=== PATIENT | male | born 1960 | race Caucasian/White ===

== ENCOUNTER 2020-04-11 21:29 | Inpatient (IN) | payer BC, SELFPAY ==
[~2020-04-11] VITALS: Ht 170.2 cm; Wt 88.0 kg
[2020-04-11 21:50] VITALS: Ht 170.2 cm; Wt 88.0 kg
[2020-04-11 23:43] LABS: BASOPHIL % 0.4 % (0.2-1.5); RED CELL DISTRIBUTION WIDTH 13.8 % (12.1-16.2)
[2020-04-11 23:46] LABS: PLATELET COUNT 103 x10^3mcL (152-348)
[2020-04-11 23:49] LABS: CARBON DIOXIDE 24.1 mmol/L (21-32); CHLORIDE SERUM 100 mmol/L (98-107); CREATININE SERUM 1.1 mg/dL (0.7-1.3); GFR1 > 60 mL/min; GLUCOSE SERUM 170 mg/dL (74-106); POTASSIUM SERUM 3.3 mmol/L (3.5-5.1); SODIUM SERUM 133 mmol/L (136-145)
[2020-04-11 23:56] LABS: ALKALINE PHOSPHATASE 98 U/L (46-116); ALT/SGPT 51 U/L (16-63); AST/SGOT 54 U/L (15-37); BILIRUBIN TOTAL 0.64 mg/dL (0.20-1.00)
[2020-04-11 23:57] LABS: LACTIC DEHYDROGENASE (LDH) 993 U/L (100-190)
[2020-04-12] MEDS ORDERED: POTASSIUM99 M1 PO (01:42)
[2020-04-12] MEDS ORDERED: KEFLEX500 M1 PO (01:43)
[2020-04-12] MEDS ORDERED: AMLODIPINE BESY1 TA1 PO (01:44)
[2020-04-12 02:58] VITALS: BP 128/75
[2020-04-12 10:36] LABS: BASOPHIL % 0.2 % (0.2-1.5); PLATELET COUNT 169 x10^3mcL (152-348); RED CELL DISTRIBUTION WIDTH 14.1 % (12.1-16.2)
[2020-04-12 10:50] LABS: CALCIUM 7.9 mg/dL (8.5-10.1); CARBON DIOXIDE 26.8 mmol/L (21-32); CHLORIDE SERUM 104 mmol/L (98-107); CREATININE SERUM 1.2 mg/dL (0.7-1.3); GFR1 > 60 mL/min; GLUCOSE SERUM 177 mg/dL (74-106); MAGNESIUM 2.5 mg/dL (1.8-2.4); PHOSPHOROUS 3.5 mg/dL (2.5-4.9); POTASSIUM SERUM 4.2 mmol/L (3.5-5.1); SODIUM SERUM 138 mmol/L (136-145)
[2020-04-12 11:33] LABS: C REACTIVE PROTEIN 23.5 mg/dL (<=0.9)
[2020-04-12 18:20] VITALS: BP 138/75
[2020-04-12 20:12] VITALS: BP 132/70
[2020-04-13 06:29] VITALS: BP 114/73
[2020-04-13 08:08] VITALS: BP 109/54
[2020-04-13 09:35] LABS: CALCIUM 8.4 mg/dL (8.5-10.1); CARBON DIOXIDE 24.7 mmol/L (21-32); CHLORIDE SERUM 107 mmol/L (98-107); GFR1 > 60 mL/min; GLUCOSE SERUM 140 mg/dL (74-106); MAGNESIUM 2.6 mg/dL (1.8-2.4); PHOSPHOROUS 3.2 mg/dL (2.5-4.9); SODIUM SERUM 142 mmol/L (136-145)
[2020-04-13 12:06] VITALS: BP 143/68
[2020-04-13 13:30] LABS: BASOPHIL % 0.2 % (0.2-1.5); PLATELET COUNT 217 x10^3mcL (152-348); RED CELL DISTRIBUTION WIDTH 13.9 % (12.1-16.2)
[2020-04-13 17:09] VITALS: BP 127/70
[2020-04-13 21:30] VITALS: BP 122/88
[2020-04-13 23:18] LABS: BILIRUBIN DIRECT 0.12 mg/dL (0.0-0.2); BILIRUBIN TOTAL 0.42 mg/dL (0.20-1.00); TOTAL PROTEIN, SERUM 6.4 g/dL (6.4-8.2)
[2020-04-13 23:19] LABS: ALBUMIN 2.7 g/dL (3.4-5.0)
[2020-04-14 05:58] VITALS: BP 119/62
[2020-04-14 07:30] VITALS: BP 121/66
[2020-04-14 07:33] LABS: BASOPHIL % 0.1 % (0.2-1.5); PLATELET COUNT 251 x10^3mcL (152-348)
[2020-04-14 07:37] LABS: C REACTIVE PROTEIN 5.9 mg/dL (<=0.9); CALCIUM 7.9 mg/dL (8.5-10.1); CARBON DIOXIDE 24.7 mmol/L (21-32); CHLORIDE SERUM 108 mmol/L (98-107); CREATININE SERUM 0.9 mg/dL (0.7-1.3); GFR1 > 60 mL/min; GLUCOSE SERUM 160 mg/dL (74-106); MAGNESIUM 2.7 mg/dL (1.8-2.4); PHOSPHOROUS 3.9 mg/dL (2.5-4.9); POTASSIUM SERUM 4.1 mmol/L (3.5-5.1); SODIUM SERUM 142 mmol/L (136-145)
[2020-04-14 07:42] LABS: TOTAL PROTEIN, SERUM 6.1 g/dL (6.4-8.2)
[2020-04-14 10:44] LABS: BILIRUBIN DIRECT 0.23 mg/dL (0.0-0.2); BILIRUBIN TOTAL 0.8 mg/dL (0.20-1.00)
[2020-04-14 10:45] LABS: ALBUMIN 2.7 g/dL (3.4-5.0)
[2020-04-14 12:53] VITALS: BP 124/60
[2020-04-14 18:10] VITALS: BP 109/50
[2020-04-14 20:55] VITALS: BP 107/50
[2020-04-15 05:35] VITALS: BP 122/58
[2020-04-15 07:35] LABS: BASOPHIL % 0.1 % (0.2-1.5); PLATELET COUNT 279 x10^3mcL (152-348); RED CELL DISTRIBUTION WIDTH 14.2 % (12.1-16.2)
[2020-04-15 07:57] LABS: CALCIUM 8.2 mg/dL (8.5-10.1); CARBON DIOXIDE 28.9 mmol/L (21-32); CHLORIDE SERUM 107 mmol/L (98-107); CREATININE SERUM 0.9 mg/dL (0.7-1.3); GFR1 > 60 mL/min; GLUCOSE SERUM 147 mg/dL (74-106); POTASSIUM SERUM 4.3 mmol/L (3.5-5.1); SODIUM SERUM 145 mmol/L (136-145)
[2020-04-15 08:35] LABS: BILIRUBIN DIRECT 0.24 mg/dL (0.0-0.2); TOTAL PROTEIN, SERUM 6.2 g/dL (6.4-8.2)
[2020-04-15 08:36] LABS: ALBUMIN 2.8 g/dL (3.4-5.0)
[2020-04-15 09:18] VITALS: BP 123/69
[2020-04-15 12:43] VITALS: BP 120/66
[2020-04-15 16:51] VITALS: BP 117/64
[2020-04-15 21:36] VITALS: BP 117/50
[2020-04-16 05:53] VITALS: BP 94/50
[2020-04-16 07:29] VITALS: BP 104/65
[2020-04-16 08:20] LABS: BILIRUBIN DIRECT 0.27 mg/dL (0.0-0.2); BILIRUBIN TOTAL 1.16 mg/dL (0.20-1.00)
[2020-04-16 08:21] LABS: ALBUMIN 2.5 g/dL (3.4-5.0); TOTAL PROTEIN, SERUM 5.9 g/dL (6.4-8.2)
[2020-04-16 13:00] VITALS: BP 89/47
[2020-04-16 16:50] VITALS: BP 104/63
[2020-04-17 00:56] VITALS: BP 115/63
[2020-04-17 05:21] VITALS: BP 96/50
[2020-04-17 09:06] VITALS: BP 99/48
[2020-04-17 12:47] VITALS: BP 113/59
[2020-04-17 16:56] LABS: BASOPHIL % 0.2 % (0.2-1.5); PLATELET COUNT 394 x10^3mcL (152-348); RED CELL DISTRIBUTION WIDTH 13.7 % (12.1-16.2)
[2020-04-17 17:13] LABS: CALCIUM 8.3 mg/dL (8.5-10.1); CARBON DIOXIDE 25.8 mmol/L (21-32); CHLORIDE SERUM 106 mmol/L (98-107); CREATININE SERUM 0.9 mg/dL (0.7-1.3); GFR1 > 60 mL/min; GLUCOSE SERUM 143 mg/dL (74-106); POTASSIUM SERUM 4.3 mmol/L (3.5-5.1); SODIUM SERUM 139 mmol/L (136-145)
[2020-04-17 17:17] VITALS: BP 100/57
[2020-04-17 23:04] VITALS: BP 108/55
[2020-04-18 04:46] VITALS: BP 99/59
[2020-04-18 09:30] VITALS: BP 101/63
[2020-04-18 10:15] LABS: C REACTIVE PROTEIN 3.6 mg/dL (<=0.9); CALCIUM 8.2 mg/dL (8.5-10.1); CARBON DIOXIDE 29.9 mmol/L (21-32); CHLORIDE SERUM 107 mmol/L (98-107); CREATININE SERUM 0.9 mg/dL (0.7-1.3); GFR1 > 60 mL/min; GLUCOSE SERUM 117 mg/dL (74-106); POTASSIUM SERUM 4.2 mmol/L (3.5-5.1); SODIUM SERUM 143 mmol/L (136-145)
[2020-04-18 10:18] LABS: BASOPHIL % 0.1 % (0.2-1.5); RED CELL DISTRIBUTION WIDTH 13.5 % (12.1-16.2)
[2020-04-18 10:41] LABS: PLATELET COUNT 417 x10^3mcL (152-348)
[2020-04-18 12:15] VITALS: BP 101/48
[2020-04-18 18:32] VITALS: BP 120/63
[2020-04-18 22:03] VITALS: BP 107/62
[2020-04-19 05:25] VITALS: BP 104/64
[2020-04-19 07:53] LABS: BASOPHIL % 0.1 % (0.2-1.5); RED CELL DISTRIBUTION WIDTH 13.9 % (12.1-16.2)
[2020-04-19 08:25] LABS: CALCIUM 8.3 mg/dL (8.5-10.1); CARBON DIOXIDE 28.2 mmol/L (21-32); CHLORIDE SERUM 106 mmol/L (98-107); CREATININE SERUM 0.9 mg/dL (0.7-1.3); GFR1 > 60 mL/min; GLUCOSE SERUM 173 mg/dL (74-106); POTASSIUM SERUM 4.5 mmol/L (3.5-5.1); SODIUM SERUM 141 mmol/L (136-145)
[2020-04-19 09:16] LABS: PLATELET COUNT 446 x10^3mcL (152-348)
[2020-04-19 10:06] VITALS: BP 115/70
[2020-04-19 13:04] VITALS: BP 111/50
[2020-04-19 17:43] VITALS: BP 112/63
[2020-04-19 21:25] VITALS: BP 114/65
[2020-04-20 05:52] VITALS: BP 101/57
[2020-04-20 07:14] LABS: BASOPHIL % 0.1 % (0.2-1.5); RED CELL DISTRIBUTION WIDTH 13.6 % (12.1-16.2)
[2020-04-20 07:25] LABS: PLATELET COUNT 422 x10^3mcL (152-348)
[2020-04-20 07:54] LABS: CALCIUM 8.3 mg/dL (8.5-10.1); CARBON DIOXIDE 27.3 mmol/L (21-32); CHLORIDE SERUM 100 mmol/L (98-107); CREATININE SERUM 0.8 mg/dL (0.7-1.3); GFR1 > 60 mL/min; GLUCOSE SERUM 161 mg/dL (74-106); POTASSIUM SERUM 4.3 mmol/L (3.5-5.1); SODIUM SERUM 135 mmol/L (136-145)
[2020-04-20 09:44] VITALS: BP 123/68
[2020-04-20 13:28] VITALS: BP 115/68
[2020-04-20 21:34] VITALS: BP 120/67
[2020-04-21 06:18] VITALS: BP 100/53
[2020-04-21 09:21] VITALS: BP 116/68
[2020-04-21 10:08] LABS: BASOPHIL % 0.1 % (0.2-1.5)
[2020-04-21 10:20] LABS: CALCIUM 8.4 mg/dL (8.5-10.1); CARBON DIOXIDE 24.9 mmol/L (21-32); CHLORIDE SERUM 101 mmol/L (98-107); GLUCOSE SERUM 191 mg/dL (74-106); SODIUM SERUM 136 mmol/L (136-145)
[2020-04-21 10:27] LABS: PLATELET COUNT 425 x10^3mcL (152-348)
[2020-04-21 10:58] LABS: CREATININE SERUM 0.9 mg/dL (0.7-1.3); GFR1 > 60 mL/min
[2020-04-21 13:54] VITALS: BP 114/59
[2020-04-21 16:49] VITALS: BP 105/63
[2020-04-21 21:37] VITALS: BP 101/60
[2020-04-22 05:57] VITALS: BP 98/53
[2020-04-22 08:59] VITALS: BP 112/68
[2020-04-22 10:09] LABS: ALKALINE PHOSPHATASE 89 U/L (46-116); ALT/SGPT 54 U/L (16-63); AST/SGOT 17 U/L (15-37); BILIRUBIN TOTAL 0.8 mg/dL (0.20-1.00); C REACTIVE PROTEIN 0.8 mg/dL (<=0.9); CALCIUM 8.4 mg/dL (8.5-10.1); CARBON DIOXIDE 26.4 mmol/L (21-32); CHLORIDE SERUM 101 mmol/L (98-107); CREATININE SERUM 0.8 mg/dL (0.7-1.3); GFR1 > 60 mL/min; GLUCOSE SERUM 134 mg/dL (74-106); MAGNESIUM 2.4 mg/dL (1.8-2.4); POTASSIUM SERUM 4.2 mmol/L (3.5-5.1); SODIUM SERUM 134 mmol/L (136-145)
[2020-04-22 10:10] LABS: ALBUMIN 2.5 g/dL (3.4-5.0); TOTAL PROTEIN, SERUM 5.6 g/dL (6.4-8.2)
[2020-04-22 12:27] VITALS: BP 115/65
[2020-04-22 16:09] LABS: PLATELET COUNT 395 x10^3mcL (152-348)
[2020-04-22 16:10] LABS: BASOPHIL % 2.7 % (0.2-1.5)
[2020-04-22 18:14] VITALS: BP 114/64
[2020-04-22 20:30] VITALS: BP 110/60
[2020-04-23 06:42] VITALS: BP 94/54
[2020-04-23 08:58] LABS: CALCIUM 8.1 mg/dL (8.5-10.1); CARBON DIOXIDE 27.3 mmol/L (21-32); CHLORIDE SERUM 104 mmol/L (98-107); CREATININE SERUM 0.7 mg/dL (0.7-1.3); GFR1 > 60 mL/min; GLUCOSE SERUM 139 mg/dL (74-106); POTASSIUM SERUM 4.4 mmol/L (3.5-5.1); SODIUM SERUM 138 mmol/L (136-145)
[2020-04-23 10:15] VITALS: BP 126/69
[2020-04-23 10:52] LABS: BASOPHIL % 0.1 % (0.2-1.5); RED CELL DISTRIBUTION WIDTH 13.8 % (12.1-16.2)
[2020-04-23 11:01] LABS: PLATELET COUNT 411 x10^3mcL (152-348)
[2020-04-23 13:48] VITALS: BP 108/66
[2020-04-23 19:09] VITALS: BP 106/63
[2020-04-23 23:11] VITALS: BP 107/58
[2020-04-24 05:10] VITALS: BP 119/60
[2020-04-24 08:16] LABS: BASOPHIL % 0.2 % (0.2-1.5); RED CELL DISTRIBUTION WIDTH 13.8 % (12.1-16.2)
[2020-04-24 08:26] LABS: PLATELET COUNT 404 x10^3mcL (152-348)
[2020-04-24 08:29] LABS: CALCIUM 8.2 mg/dL (8.5-10.1); CARBON DIOXIDE 31.4 mmol/L (21-32); CHLORIDE SERUM 102 mmol/L (98-107); CREATININE SERUM 0.9 mg/dL (0.7-1.3); GFR1 > 60 mL/min; GLUCOSE SERUM 151 mg/dL (74-106); POTASSIUM SERUM 4.6 mmol/L (3.5-5.1); SODIUM SERUM 138 mmol/L (136-145)
[2020-04-24 08:42] VITALS: BP 105/56
[2020-04-24 12:27] VITALS: BP 98/57
[2020-04-24 16:06] VITALS: BP 125/71
[2020-04-24 22:49] VITALS: BP 105/65
[2020-04-25 06:31] VITALS: BP 107/57
[2020-04-25 08:31] LABS: BASOPHIL % 0.1 % (0.2-1.5); PLATELET COUNT 366 x10^3mcL (152-348)
[2020-04-25 08:39] LABS: CALCIUM 8.3 mg/dL (8.5-10.1); CARBON DIOXIDE 29.9 mmol/L (21-32); CHLORIDE SERUM 98 mmol/L (98-107); CREATININE SERUM 0.9 mg/dL (0.7-1.3); GFR1 > 60 mL/min; GLUCOSE SERUM 91 mg/dL (74-106); POTASSIUM SERUM 3.5 mmol/L (3.5-5.1); SODIUM SERUM 134 mmol/L (136-145)
[2020-04-25 08:47] VITALS: BP 102/61
[2020-04-25 12:46] VITALS: BP 102/59
[2020-04-25 16:07] VITALS: BP 119/60
[2020-04-25 21:30] VITALS: BP 107/70
[2020-04-26 04:05] VITALS: BP 85/58
[2020-04-26 07:58] LABS: BASOPHIL % 0.2 % (0.2-1.5); PLATELET COUNT 303 x10^3mcL (152-348); RED CELL DISTRIBUTION WIDTH 14.4 % (12.1-16.2)
[2020-04-26 08:08] LABS: CALCIUM 8.2 mg/dL (8.5-10.1); CARBON DIOXIDE 28.9 mmol/L (21-32); CHLORIDE SERUM 104 mmol/L (98-107); CREATININE SERUM 1.1 mg/dL (0.7-1.3); GFR1 > 60 mL/min; GLUCOSE SERUM 85 mg/dL (74-106); POTASSIUM SERUM 3.9 mmol/L (3.5-5.1); SODIUM SERUM 139 mmol/L (136-145)
[2020-04-26 09:17] VITALS: BP 101/57
[2020-04-26 13:47] VITALS: BP 98/55
[2020-04-26 18:13] VITALS: BP 93/56
[2020-04-26 20:26] VITALS: BP 125/68
[2020-04-27 05:30] VITALS: BP 116/67
[2020-04-27 09:04] VITALS: BP 116/68
[2020-04-27 12:25] VITALS: BP 111/64
[2020-04-27 17:16] VITALS: BP 110/64
[2020-04-27 22:04] VITALS: BP 102/63
[2020-04-28 05:16] VITALS: BP 123/60
[2020-04-28 07:48] LABS: BASOPHIL % 0.2 % (0.2-1.5); PLATELET COUNT 255 x10^3mcL (152-348)
[2020-04-28 08:41] LABS: CALCIUM 8.3 mg/dL (8.5-10.1); CARBON DIOXIDE 27.6 mmol/L (21-32); CHLORIDE SERUM 106 mmol/L (98-107); CREATININE SERUM 0.8 mg/dL (0.7-1.3); GFR1 > 60 mL/min; GLUCOSE SERUM 167 mg/dL (74-106); POTASSIUM SERUM 3.6 mmol/L (3.5-5.1); SODIUM SERUM 140 mmol/L (136-145)
[2020-04-28 09:06] VITALS: BP 105/58
[2020-04-28 12:27] VITALS: BP 109/66
[2020-04-28 16:58] VITALS: BP 113/67
[2020-04-28 21:43] VITALS: BP 98/56
[2020-04-29 05:46] VITALS: BP 107/62
[2020-04-29 07:31] LABS: BASOPHIL % 0.2 % (0.2-1.5); PLATELET COUNT 245 x10^3mcL (152-348); RED CELL DISTRIBUTION WIDTH 14.5 % (12.1-16.2)
[2020-04-29 08:18] LABS: CALCIUM 8.1 mg/dL (8.5-10.1); CHLORIDE SERUM 107 mmol/L (98-107); CREATININE SERUM 0.7 mg/dL (0.7-1.3); GFR1 > 60 mL/min; GLUCOSE SERUM 84 mg/dL (74-106); POTASSIUM SERUM 3.8 mmol/L (3.5-5.1); SODIUM SERUM 141 mmol/L (136-145)
[2020-04-29 08:44] VITALS: BP 134/72
[2020-04-29 11:38] VITALS: BP 99/55
[2020-04-29 17:31] VITALS: BP 114/72
[2020-04-29 21:10] VITALS: BP 104/60
[2020-04-30 05:23] VITALS: BP 120/72
[2020-04-30] MEDS ORDERED: NOR5 PO (09:01)
[2020-04-30] MEDS ORDERED: LIPI10 PO (09:01)
[2020-04-30] MEDS ORDERED: VENTOLIN H0.09 MG/A1 INH (09:01)
[2020-04-30] MEDS ORDERED: TES100 PO (09:02)
[2020-04-30] MEDS ORDERED: PEP20 PO (09:02)
[2020-04-30] MEDS ORDERED: MUCINEX600 MG PO (09:02)
[2020-04-30] MEDS ORDERED: DECADRON6 MG PO (09:03)
[2020-04-30] MEDS ORDERED: ZINC SULFATE220 MG PO (09:03)
[2020-04-30] MEDS ORDERED: VITC PO (09:04)
[2020-04-30] MEDS ORDERED: MEDI-FIRST ASP325 MG PO (09:04)
[2020-04-30] MEDS ORDERED: D-10001 TAB PO (09:05)
[2020-04-30] MEDS ORDERED: BLOOD LANCETS1 EACH TOP (09:15)
[2020-04-30] MEDS ORDERED: TEST STRIPS1 EACH MC (09:16)
[2020-04-30] MEDS ORDERED: EASY COMFORT ALCO70% TOP (09:16)
[2020-04-30] MEDS ORDERED: BLOOD GLUCOSE1 EAC3 MC (09:19)
[2020-04-30 09:30] VITALS: BP 119/62
[2020-04-30 12:59] VITALS: BP 127/65
== END 2020-04-30 16:50 | disposition home or self-care (01) | DRG 871 ==
LOC: ED 21:29 → DU 04-12 01:45
PROVIDERS: Emergency Medicine; Family Medicine; ADMIT Internal Medicine; ATTEND Internal Medicine
PROC: XW13325 Transfusion of Convalescent Plasma (Nonautologous) into Peripheral Vein, Percutaneous Approach, New Technology Group 5 (ICD-10-PCS; principal; 2020-04-20)
DX: A41.89 Other specified sepsis (principal); U07.1 COVID-19; J12.82 Pneumonia due to coronavirus disease 2019; J96.01 Acute respiratory failure with hypoxia; E87.1 Hypo-osmolality and hyponatremia; E46 Unspecified protein-calorie malnutrition; I10 Essential (primary) hypertension; E11.9 Type 2 diabetes mellitus without complications; E87.6 Hypokalemia; D69.6 Thrombocytopenia, unspecified
CPT/HCPCS: 36600; 82962; 83880; 85378; 87804; G0378; J0456; J1100; J1650; J1815; J1885; J2543; J3535; J7030; J7040; J7050; U0003